=== PATIENT | female | born 1935 | race Caucasian/White ===

== ENCOUNTER 2016-09-10 10:58 | Emergency (ER) | payer OTHER ==
[~2016-09-10] VITALS: Ht 167.6 cm; Wt 73.5 kg
--- NOTE | ~2016-09-10 | EKG ---
[place] [address] [facility] [place] [address] ELECTROCARDIOGRAM REPORT Name: JOHN PURCELL Room #: DEP YASSINE Saunders#: [id number] Admission: 09/10/16 Attend Phys: Discharge: 09/10/16 Date of : 37 Report #: [id number] THIS REPORT FOR: //name// [facility] ED Test Date: 2016-09-10 Test Time: 11:03:57 Pat Name: JOHN PURCELL Department: Room: Gender: F Coding Specialist: andreea : 1935 Requested By: Sukumar Jacinto Order Number: [id number] MD: Kiran Sanchez Measurements Intervals [place] Rate: 81 P: 63 MD: 159 QRS: 0 QRSD: 92 T: 22 QT: 368 QTc: 428 Interpretive Statements Sinus rhythm LVH by voltage No previous ECG available for comparison Electronically Signed On 09-11-2016 16:56:51 CDT by Kiran Sanchez [email or web address] <ELECTRONICALLY SIGNED> By: Kiran Sanchez MD 09/11/16 1656 1103 [id number] Kiran Sanchez MD /CHIDI
[2016-09-10 11:51] LABS: ABSOLUTE NEUTROPHILS 2.5 thou/uL (1.4-8.2); BASOPHILS 1.2 % (0.0-2.0); EOSINOPHILS 1.6 % (0.0-3.0); HEMATOCRIT 35.9 % (37.0-47.0); HEMOGLOBIN 11.8 gm/dL (12.0-15.0); LYMPHOCYTES 31.3 % (24.0-44.0); MCH 26.8 pg (26.0-34.0); MCHC 32.8 g/dL (28.0-37.0); MCV 81.7 fL (80.0-100.0); MONOCYTES 10.6 % (1.0-8.0); PLATELET COUNT 141 thou/uL (150-400); POLYS 55.3 % (36.0-66.0); RDW 15.2 % (10.5-14.5); WBC 4.5 thou/uL (4.0-11.0)
[2016-09-10 11:54] LABS: MANUAL DIFF NO
[2016-09-10 11:59] LABS: ANION GAP 6 mmol/L (7-16); BUN 27 mg/dL (7-18); CALCIUM 9.7 mg/dL (8.5-10.1); CHLORIDE 102 mmol/L (98-107); CO2 28 mmol/L (21-32); CREATININE 1.1 mg/dL (0.6-1.0); GLUCOSE 130 mg/dL (74-106); POTASSIUM 4.3 mmol/L (3.5-5.1); SODIUM 136 mmol/L (136-145)
[2016-09-10 12:07] LABS: TROPONIN-I < 0.04 ng/mL (<0.04-0.07)
[2016-09-10 13:17] VITALS: BP 167/63
== END 2016-09-10 12:53 | disposition home or self-care (01) ==
LOC: ER 10:58
PROVIDERS: Emergency Medicine
DX: I10 Essential (primary) hypertension (principal); E11.9 Type 2 diabetes mellitus without complications; K21.9 Gastro-esophageal reflux disease without esophagitis; E78.00 Pure hypercholesterolemia, unspecified; Z87.39 Personal history of other diseases of the musculoskeletal system and connective tissue; Z90.710 Acquired absence of both cervix and uterus; Z90.49 Acquired absence of other specified parts of digestive tract; Z98.890 Other specified postprocedural states; Z88.6 Allergy status to analgesic agent; Z88.5 Allergy status to narcotic agent; Z88.8 Allergy status to other drugs, medicaments and biological substances